=== PATIENT | female | born 1950 | race Caucasian/White ===

== ENCOUNTER 2021-03-06 07:15 | Emergency (ER) | payer MEDICARE, SELFPAY ==
[2021-03-06] VITALS (12 sets, daily range): BP systolic 142–153; BP diastolic 46–75; PULSE 98–106; RESP 20–42; TEMP 36.3–36.9; O2SAT 94–100
--- NOTE | ~2021-03-06 | CT_ITS ---
EXAMINATION: CT brain wo con DATE: 03/06/2021 07:56 INDICATION: Cerebrovascular accident. Altered mental status. Hypoxia. TECHNIQUE: Computed tomography (CT) of the head was performed without intravenous contrast. The mA wa s adjusted according to patient size. Iterative reconstruction technique was employed. Exam dose: 14 37.67 mGy-cm total exam DLP. COMPARISON: None FINDINGS: Examination is limited due to motion. There is also considerable streak artifact from denta l fillings. Within the limits of examination, no apparent intracranial mass lesion or hemorrhage, midline shift o r mass effect effect or subdural or epidural hematoma is noted. Bilateral vertebral artery, basilar artery and bilateral carotid siphon internal carotid artery calci fications are noted. No skull fracture or bone destruction is evident. Included paranasal sinuses and mastoid air cells ar e unremarkable. IMPRESSION: Limited examination; no gross acute intracranial abnormality is identified Reviewed, dictated and finalized at [facility]. Reviewed, dictated and finalized at [facility]. IMPRESSION: Limited examination; no gross acute intracranial abnormality is id entified
--- NOTE | ~2021-03-06 | XR_ITS ---
XR chest 1V portable DATE: 03/06/2021 08:24 INDICATION: Hypoxia. Altered mental status. TECHNIQUE: Portable AP views on 03/02/2021 at 0835 hours COMPARISON: None FINDINGS: Examination is limited due to portable technique and body habitus. Cardiomegaly. There is pulmonary vascular redistribution which may indicate pulmonary venous hyperten kristan and mild congestive change. Left lower lung infiltrate or atelectasis is suggested. Small pleural effusions cannot be excluded. N o pneumothorax is evident. IMPRESSION: Limited examination due to portable technique and body habitus Cardiomegaly and pulmonary vascular congestion suggests mild congestive heart failure Infiltrate and/atelectasis, left lower lung Reviewed, dictated and finalized at [facility]. IMPRESSION: Limited examination due to portable technique and body habitus Cardiomegaly and pulmonary vascular congestion suggests mild congestive heart f ailure Infiltrate and/atelectasis, left lower lung
--- NOTE | 2021-03-06 07:18 | ECG_ITS ---
Measurements Intervals [place] Rate: 97 P: 50 NV: 151 QRS: 56 QRSD: 86 T: 16 QT: 318 QTc: 405 Interpretive Statements SINUS RHYTHM WITH SINUS ARRHYTHMIA BORDERLINE R WAVE PROGRESSION, ANTERIOR LEADS BORDERLINE ST-T WAVE ABNORMALITY- INFERIOR LEADS BASELINE ARTIFACT- V1, V6 BORDERLINE ECG Electronically Signed On 03-06-2021 17:10:14 CDT by Harrison Boateng D.O.
[2021-03-06 07:37] LABS: Base Excess ABG 15.6 mmol/L (0-2); HCO3 ABG 49.9 mmol/L (23-29); PO2 ABG 87.4 mmHg (75-85); pH ABG 7.22 (7.35-7.45)
[2021-03-06 07:43] LABS: Oxygen Saturation ABG 93.7 % (95-97)
[2021-03-06 07:44] LABS: Device NASAL CANNULA; Modified Allen's Test Pass; Site Drawn LEFT BRACHIAL
[2021-03-06 07:46] LABS: PCO2 ABG 125.2 mmHg (35-45)
[2021-03-06 07:51] LABS: Basophils Absolute Auto 0.03 K/mm3 (0.00-0.10); Basophils Percent Auto 0.3 % (0.0-1.0); Eosinophils Absolute Auto 0.14 K/mm3 (0.02-0.50); Eosinophils Percent Auto 1.5 % (1.0-6.0); Hematocrit 40.8 % (35.0-42.0); Hemoglobin 10.9 g/dL (11.7-13.8); Immature Granulocyte Absolute 0.09 K/mm3 (0.00-0.00); Immature Granulocyte Percent A 0.9 % (0.0-0.0); Immature Platelet Fraction Pct 3.1 % (1.0-7.0); Lymphocytes Absolute Auto 2.12 K/mm3 (1.10-4.50); Mean Corpuscular HGB Conc 26.7 g/dL (32.0-36.0); Mean Corpuscular Hemoglobin 28.1 pg (27.0-31.0); Mean Corpuscular Volume 105.2 fL (78.0-102.0); Mean Platelet Volume 10.7 fl (9.2-11.8); Monocytes Absolute Auto 0.71 K/mm3 (0.10-0.90); Monocytes Percent Auto 7.4 % (2.0-11.0); Neutrophils Absolute Auto 6.6 K/mm3 (1.7-7.2); Neutrophils Percent Auto 67.9 % (50.0-70.0); Platelet Count Result 101 K/mm3 (150-420); Red Blood Count 3.88 M/mm3 (4.20-5.40); Red Cell Distribution Width 15.4 % (11.6-14.4); White Blood Count 9.6 K/mm3 (4.8-10.8)
--- NOTE | 2021-03-06 07:53 | ED.AMS ---
HPI - Altered Mental Status General Chief Complaint: Altered Mental Status Stated Complaint: ambulance Time Seen by Provider: 03/06/21 07:17 Source: other ([facility] staff) Mode of arrival: EMS Limitations: altered mental status History of Present Illness HPI narrative: 7-year-old woman with a history of type 1 diabetes and who uses CPAP brought to the emergency department after [facility] staff found her having difficulty breathing and decreased alertness at 6:15 a.m. this morning. [facility] staff said that her blood sugars 171 at 5:30 a.m. and she was her usual state. Sats were in the 70s this morning and she was put on her CPAP. They did not improve so she was brought to the emergency department. She had a rapid COVID test this morning which was negative. MD complaint: altered mental status Onset (ago): hour(s) (1) Timing confirmed by: other ( [facility] staff) Severity: moderate Consistency of symptoms: getting Worse Associated symptoms: shortness of breath Related Data Home Medications Medication Instructions Recorded Confirmed albuterol sulfate 2.5 mg INHALATION Q4-6H PRN 03/06/21 03/06/21 ascorbate calcium (vitamin C) 500 mg PO DAILY 03/06/21 03/06/21 biotin-keratin [Biotin Plus 1 tablet PO DAILY 03/06/21 03/06/21 Keratin] calcium carbonate [Tums 500] 500 mg PO TID 03/06/21 03/06/21 carvedilol [Coreg] 6.25 mg PO BID 03/06/21 03/06/21 duloxetine [Cymbalta] 60 mg PO DAILY 03/06/21 03/06/21 ferrous sulfate 325 mg PO DAILY 03/06/21 03/06/21 insulin glargine 40 unit SUBCUT QPM 03/06/21 03/06/21 insulin lispro 9 unit SUBCUT TID 03/06/21 03/06/21 losartan [Cozaar] 100 mg PO DAILY 03/06/21 03/06/21 megestrol 80 mg PO BID 03/06/21 03/06/21 melatonin 10 mg PO HS 03/06/21 03/06/21 miconazole nitrate [Antifungal 1 applic TOPICAL DAILY 03/06/21 03/06/21 (miconazole)] pantoprazole [Protonix] 40 mg PO QAM 03/06/21 03/06/21 warfarin [Coumadin] 3.75 mg PO DAILY 03/06/21 03/06/21 Allergies Allergy/AdvReac Type Severity Reaction Status Date / Time cephalexin Allergy Unknown Verified 03/06/21 08:47 Sulfa (Sulfonamide Allergy Unknown Verified 03/06/21 08:47 Antibiotics) Review of Systems Review of Systems: ROS unobtainable: Yes unobtainable due to mental status Constitutional: Constitutional: Reports chills PMFSH Past Medical History Medical History Depression GERD (gastroesophageal reflux disease) Hypertension Obesity Pulmonary embolus Type 1 diabetes mellitus Surgical History Surgical History H/O knee surgery History of hip surgery S/P laparotomy Exam Const: General: ill appearing acutely Nutritional Appearance: obese Limitations: altered mental status (GCS 8) HENMT: Head: normal to inspection Mouth: Yes moist mucous membranes Eyes: Conjunctivae: conjunctivae normal Pupils: Equal, round and reactive pupils present EOM: EOMs intact bilaterally Chest: Chest palpation & inspection: normal inspection of the chest Resp: Effort & Inspection: no retractions, tachypneic and no use of accessory muscles Auscultation: diminished lung sounds diffuse Cardio: Rate: tachycardic Rhythm: regular rhythm GI: GI Palp: Yes Soft to palpation and No Tenderness to palpation present (GI) Skin: General skin exam: normal color, no jaundice and no pallor Rashes: no rashes Other: Bruising on arms Neuro: Cranial nerves: Yes Nystagmus not present Extrem: General: normal to inspection and no clubbing, cyanosis or edema Other: 1+ pitting edema Psych: Appearance: well kempt Course Course Emergency Course: Patient's request that she got [facility] where her doctors are. I relayed that they had no beds and might not have the cardiac care she needs. He stated that [facility] and/or [place] [facility] would be okay. 1300: Discussed findings with Dr. Constantino from [facility]
[2021-03-06 08:03] LABS: Lactic Acid Reflex 1.8 mmol/L (0.4-2.0)
[2021-03-06 08:05] LABS: Prothrombin Time 40.1 Seconds (9.50-12.10)
[2021-03-06 08:10] LABS: Add Urine Microscopic? YES; Appearance Urine Sl Cloudy (Clear); Bilirubin Urine Negative (Negative); Blood Urine 2+ (Negative); Color Urine Yellow (Yellow); Glucose Urine UA Negative (Negative); Ketones Urine Negative (Negative); Leukocyte Esterase Ur Negative LEU/UL (Negative); Nitrate Urine Negative (Negative); Protein Urine 2+ (Negative); Specific Grav Ur >= 1.030 (1.010-1.020); Urobilinogen Urine 0.2 mg/dL (0.2-1.0)
[2021-03-06] MEDS: SODIUM CHLORIDE 0.9% IV 1,000 ML 999 ML IV CONT (08:11)
[2021-03-06 08:12] LABS: Alanine Aminotransferase 20 U/L (14-59); Albumin Level 2.7 g/dL (3.4-5.0); Alkaline Phosphatase 68 U/L (46-116); Aspartate Amino Transferase 29 U/L (15-37); Bilirubin,Total 0.8 mg/dL (0.00-1.00); Blood Urea Nitrogen 46 mg/dL (7-18); Chloride 107 mmol/L (98-108); Estimated Glomerular Filt Rate 51; Glucose 160 mg/dL (70-99); Osmolality Calculated 330 mOsm/kg (285-295); Sodium 153 mmol/L (136-145); Total Protein 6.9 g/dL (6.4-8.2)
[2021-03-06 08:14] LABS: Acetaminophen < 2 ug/mL (10-30); Ammonia 22 umol/L (11-32); Creatine Kinase 104 U/L (26-192); Salicylate 1.6 mg/dL (2.8-20.0)
[2021-03-06 08:14] LABS: NT Pro B Type Natriuretic Pept 7056 pg/mL (0-125)
[2021-03-06 08:16] LABS: Amphetamine Screen Urine Negative (Negative); Barbiturate Screen Urine Negative (Negative); Benzodiazepines Screen Urine Negative (Negative); Cannabinoid Screen Urine Negative (Negative); Cocaine Screen Urine Negative (Negative); Methadone Screen Urine Negative (Negative); Opiate Screen Urine Negative (Negative); Phencyclidine Screen Urine Negative (Negative)
[2021-03-06 08:16] LABS: Carbon Dioxide > 45 mmol/L (21-32); Potassium 6.6 mmol/L (3.5-5.1)
[2021-03-06 08:17] LABS: Troponin I 1271.4 ng/L (0.00-60.4)
[2021-03-06 08:20] LABS: Squamous Epithelial Cell Urine Rare /hpf (Few)
[2021-03-06 08:21] LABS: Amorphous Sediment Urine Moderate; Bacteria Urine Trace /hpf
[2021-03-06] MEDS: ALBUTEROL SULFATE NEB 2.5 MG/3 ML INH 5 MG INHALATION (08:29)
[2021-03-06 08:41] LABS: Magnesium 1.7 mg/dL (1.8-2.4)
--- NOTE | 2021-03-06 08:54 | PC.NURSE ---
Patient has a had 2 previous recent admissions to [facility], family requested transfer back. [facility] has no ICU beds. Pt remains a FULL Code, will call other [facility] network hospitals.
[2021-03-06 08:57] LABS: Influenza Control Valid (Valid)
[2021-03-06] MEDS: FUROSEMIDE INJ 40 MG/4 ML VIAL IV PUSH (09:04)
[2021-03-06] MEDS: CALCIUM CHLORIDE 1,000 MG/10 ML SYRINGE 1000 MG IV PUSH (09:04)
[2021-03-06] MEDS: INSULIN HUMAN REGULAR (*BKC) 100 UNITS/ML IV PUSH (09:05)
[2021-03-06 09:33] LABS: SARS-CoV-2 RNA PCR Negative (Negative)
[2021-03-06 09:56] LABS: Base Excess ABG 17.5 mmol/L (0-2); HCO3 ABG 49.7 mmol/L (23-29); PO2 ABG 82.1 mmHg (75-85); pH ABG 7.31 (7.35-7.45)
[2021-03-06 09:59] LABS: Oxygen Saturation ABG 94.1 % (95-97); PCO2 ABG 101.9 mmHg (35-45)
[2021-03-06 10:01] LABS: Site Drawn RIGHT BRACHIAL
[2021-03-06 10:02] LABS: Device HIGH FLOW NASAL CANN; Modified Allen's Test Pass
[2021-03-06 10:13] LABS: Alanine Aminotransferase 22 U/L (14-59); Albumin Level 2.6 g/dL (3.4-5.0); Alkaline Phosphatase 66 U/L (46-116); Aspartate Amino Transferase 35 U/L (15-37); Bilirubin,Total 0.7 mg/dL (0.00-1.00); Blood Urea Nitrogen 51 mg/dL (7-18); Calcium 10.7 mg/dL (8.5-10.1); Chloride 108 mmol/L (98-108); Estimated Glomerular Filt Rate 53; Glucose 174 mg/dL (70-99); Osmolality Calculated 333 mOsm/kg (285-295); Potassium 6.2 mmol/L (3.5-5.1); Sodium 153 mmol/L (136-145); Total Protein 6.6 g/dL (6.4-8.2)
[2021-03-06 10:24] LABS: Carbon Dioxide > 45 mmol/L (21-32)
--- NOTE | 2021-03-06 12:00 | PC.NURSE ---
ERP spoke to [facility] transfer line approx 30 min ago, awaiting the intensivists to call the transfer line back. Patient is moaning in bed otherwise, no following commands. Remains on [place] NC, VSS stable otherwise.
[2021-03-06 12:42] LABS: Blood Urea Nitrogen 50 mg/dL (7-18); Calcium 10.7 mg/dL (8.5-10.1); Chloride 109 mmol/L (98-108); Estimated Glomerular Filt Rate 51; Glucose 158 mg/dL (70-99); Osmolality Calculated 334 mOsm/kg (285-295); Potassium 6.1 mmol/L (3.5-5.1); Sodium 154 mmol/L (136-145)
--- NOTE | 2021-03-06 12:44 | PC.NURSE ---
Assumed care of pt at this time from ANAND Carpenter.
[2021-03-06 12:46] LABS: Carbon Dioxide > 45 mmol/L (21-32)
[2021-03-06 13:06] LABS: HCO3 ABG 46.8 mmol/L (23-29); PO2 ABG 59.9 mmHg (75-85)
[2021-03-06 13:09] LABS: Oxygen Saturation ABG 86.3 % (95-97); PCO2 ABG 97.7 mmHg (35-45)
[2021-03-06 13:10] LABS: Device HIGH FLOW NASAL CANN; Modified Allen's Test Pass; Site Drawn RIGHT BRACHIAL
--- NOTE | 2021-03-06 13:11 | PC.NURSE ---
[facility] line called for triage information. Pt is accepted but no bed number at this time. Family made aware.
--- NOTE | 2021-03-06 13:13 | PC.NURSE ---
Labratory called with critical test results for pt PCO2 and Ph. Dr Dodson made aware.
--- NOTE | 2021-03-06 13:26 | PC.NURSE ---
Respiratory at bedside placing pt on Bipap
[2021-03-08 15:26] LABS: Glucose Point of Care 175 mg/dl (65-105)
== END 2021-03-06 16:00 | disposition short-term general hospital (02) ==
PROVIDERS: Emergency Provider Emergency Medicine; PCP Family Medicine
DX: I21.4 Non-ST elevation (NSTEMI) myocardial infarction (principal); I50.9 Heart failure, unspecified; J96.20 Acute and chronic respiratory failure, unspecified whether with hypoxia or hypercapnia; E87.5 Hyperkalemia; E10.9 Type 1 diabetes mellitus without complications; Z79.4 Long term (current) use of insulin; K21.9 Gastro-esophageal reflux disease without esophagitis; I10 Essential (primary) hypertension; Z86.711 Personal history of pulmonary embolism; Z79.01 Long term (current) use of anticoagulants; Z79.899 Other long term (current) drug therapy; Z20.822 Contact with and (suspected) exposure to COVID-19
CPT/HCPCS: 36415; 36600; 70450; 71045; 80048; 80053; 80307; 81001; 82140; 82375; 82550; 82805; 82948; 83050; 83605; 83735; 83880; 84484; 85025; 85055; 85610; 85730; 87040; 87804; 93005; 94640; 96374; 96375; 99285; C9803; J1815; J1940; J7030; U0003; U0005